=== PATIENT | male | born 1995 | race African-American/Black ===

== ENCOUNTER 2022-07-10 03:40 | Emergency (ER) | payer MEDICAID, OTHER ==
[~2022-07-10] VITALS: Ht 182.9 cm; Wt 70.3 kg
--- NOTE | 2022-07-10 03:42 | NUR ---
[email or web address] from [facility] c/o n/v x1hr
--- NOTE | 2022-07-10 03:44 | NUR ---
DR. LEACH AT BEDSIDE
[2022-07-10] MEDS ORDERED: ONDANSETRON HCL/PF 4 MG/2 ML VIAL ONE (04:00)
[2022-07-10] MEDS ORDERED: IV NS 0.9% 1,000 ML BAG IV ONE (04:00)
[2022-07-10] MEDS ORDERED: ONDANSETRON HCL/PF 4 MG/2 ML VIAL IVP ONE (04:00)
--- NOTE | 2022-07-10 04:02 | NUR ---
20G STARTED ON L AC. BLOOD COLLECTED SENT TO LAB
--- NOTE | 2022-07-10 04:07 | NUR ---
PROVIDE PT WITH URINAL; AWAITING URINE SAMPLE
[2022-07-10 04:44] LABS: BASOPHILS # (AUTO) 0.2 K/uL (0.0-0.2); BASOPHILS % (AUTO) 1.2 % (0.0-2.0); EOSINOPHILS % (AUTO) 1.1 % (0.0-6.0); HEMATOCRIT 40 % (39-51); HEMOGLOBIN 12.7 g/dL (13.5-17.5); LYMPHOCYTES # (AUTO) 1.2 K/uL (0.8-4.8); LYMPHOCYTES % (AUTO) 8.2 % (20.0-44.0); MEAN CORPUSCULAR HGB CONC 32 g/dl (31.0-36.0); MEAN CORPUSCULAR VOLUME 89 fL (80-96); MONOCYTES # (AUTO) 0.5 K/uL (0.1-1.30); MONOCYTES % (AUTO) 3.7 % (2.0-12.0); NEUTROPHILS # (AUTO) 12.1 K/uL (1.8-8.9); NEUTROPHILS % (AUTO) 85.8 % (43.0-81.0); PLATELET COUNT (AUTO) 269 K/uL (150-450); RED BLOOD CELL COUNT(AUTO) 4.46 MIL/uL (4.5-6.0); WHITE BLOOD COUNT (AUTO) 14.2 K/uL (4.3-11.0)
--- NOTE | 2022-07-10 05:05 | NUR ---
NO URINE SAMPLE AT THIS TIME; DR HAYLEE KAISER AWARE
[2022-07-10 05:25] LABS: ALBUMIN 4.2 g/dL (3.4-5.0); BILIRUBIN,DIRECT 0.2 mg/dL (0.0-0.2); BILIRUBIN,TOTAL 0.6 mg/dL (0.2-1.0); CALCIUM, SERUM 9.5 mg/dL (8.5-10.1); CREATININE 1.1 mg/dL (0.6-1.3); POTASSIUM 3.2 mmol/L (3.5-5.1)
--- NOTE | 2022-07-10 05:26 | NUR ---
PT TAKEN TO CT VIA [facility]
[2022-07-10] MEDS ORDERED: IOHEXOL-300 100 ML VIAL IV ONE (05:28)
[2022-07-10] MEDS ORDERED: IV NS 0.9% 250 ML IV ONE (05:28)
[2022-07-10] MEDS ORDERED: HALOPERIDOL LACTATE INJ 5 MG/ML VIAL IV ONE ×2 (05:30→06:00)
[2022-07-10] MEDS ORDERED: HALOPERIDOL LACTATE INJ 5 MG/ML VIAL ONE (05:33)
--- NOTE | 2022-07-10 05:39 | NUR ---
PT RETURNED TO ER BED [address]
--- NOTE | 2022-07-10 05:50 | NUR ---
EMT AT PT'S BEDSIDE FOR EKG
--- NOTE | 2022-07-10 07:19 | NUR ---
RECEIVED PT ON BED. Patient is resting comfortably in bed with eyes closed. Easily aroused. VSS. STILL WAITING FOR URINE SAMPLE.
--- NOTE | 2022-07-10 08:22 | NUR ---
us tech at bedside
--- NOTE | 2022-07-10 08:44 | NUR ---
dr mireles informed, no urine sample . offered urinals but pt declined. urine cup at bedside.
[2022-07-10 09:54] VITALS: BP 118/77
--- NOTE | 2022-07-10 09:54 | NUR ---
Patient discharged to home in stable condition. Written and verbal after care instructions given. Patient verbalizes understanding of instruction.Patient given written and verbal discharge instructions. Patient verbalizes understanding of instructions. Patient is ambulatory with steady gait. Refuses offer of half-way placement. Patient given list of available shelters in surrounding area.
--- NOTE | 2022-07-10 09:54 | NUR ---
IV removed. Catheter intact and site benign. Pressure and 4x4 applied to site. No bleeding noted.
== END 2022-07-10 09:54 | disposition home or self-care (01) ==
LOC: ER 03:42
DX: R11.2 Nausea with vomiting, unspecified (principal); R10.9 Unspecified abdominal pain; Z59.00 Homelessness unspecified
CPT/HCPCS: 99285; 74177; 96374; 76705; 96361; 96375; 93005; 85025; 80048; 83690; 80076; 36415; J1630; J2405; J7030; J7050; Q9967